=== PATIENT | male | born 1960 | race Caucasian/White ===

== ENCOUNTER 2017-05-09 12:20 | Day surgery (SDC) | payer OTHER ==
[2017-05-07 13:53] VITALS: BP 142/86
[~2017-05-09] VITALS: Ht 185.4 cm; Wt 80.0 kg
[~2017-05-09 12:20] MED LIST: BUPIVACAINE/PF 0.5% ONE; CALC625T23 PO; DEXT10CA4 PO
[2017-05-09] MEDS ORDERED: MIDAZOLAM 1 MG/ML, 2ML ONE (13:10)
[2017-05-09] MEDS ORDERED: FENTANYL PF 100 MCG/2ML ONE ×2 (13:11→15:19)
[2017-05-09] MEDS ORDERED: LACTATED RINGERS 1,000 ML IV SCH (13:11)
[2017-05-09] MEDS ORDERED: LIDOCAINE 1%, 2ML SQ PRN (13:30)
[2017-05-09] MEDS ORDERED: KETOROLAC 30 MG/1 ML ONE (13:52)
[2017-05-09] MEDS ORDERED: PROPOFOL 10 MG/ML, 20ML ONE (13:52)
[2017-05-09] MEDS ORDERED: ONDANSETRON 2MG/ML, 2ML ONE (13:52)
[2017-05-09] MEDS ORDERED: CEFAZOLIN 1,000 MG ONE (13:52)
[2017-05-09] MEDS ORDERED: DEXAMETHASONE 4 MG/ML, 1ML ONE (13:52)
[2017-05-09] MEDS ORDERED: ROCURONIUM 10 MG/ML ONE (13:52)
[2017-05-09] MEDS ORDERED: BUPIVACAINE/PF-EPI 0.5% 1:200K IM ONE (14:00)
[2017-05-09] MEDS ORDERED: GLYCOPYRROLATE 0.2MG/1ML, 5ML ONE (14:58)
[2017-05-09] MEDS ORDERED: FENTANYL PF 100 MCG/2ML IV PRN (15:00)
[2017-05-09] MEDS ORDERED: ONDANSETRON 2MG/ML, 2ML IVPush PRN (15:00)
[2017-05-09] MEDS ORDERED: HYDROmorphone 1 MG/ML, 1ML IV PRN (15:00)
[2017-05-09] MEDS ORDERED: PROMETHAZINE 25 MG/ML, 1ML IV PRN (15:00)
[2017-05-09] MEDS ORDERED: LABETALOL 5MG/ML, 20ML IV PRN (15:00)
[2017-05-09] MEDS ORDERED: ACETAMINOPHEN 325 MG TABLET PO PRN (15:00)
[2017-05-09] MEDS ORDERED: MEPERIDINE/PF 25MG/0.5ML IVPush PRN (15:00)
[2017-05-09] MEDS ORDERED: OXYcodone 5 MG/5 ML ORAL.SOL UDC PO PRN (15:00)
[2017-05-09] MEDS ORDERED: ACETAMINOPHEN 650 MG/20.3 ML UDC ONE (15:18)
[2017-05-09] MEDS ORDERED: OXYcodone 5 MG/5 ML ORAL.SOL UDC ONE (15:19)
[2017-05-09] MEDS ORDERED: GLYCOPYRROLATE 0.2MG/1ML, 5ML IVPush ONE (15:30)
== END 2017-05-09 18:40 | disposition home or self-care (01) ==
LOC: OUT 12:20
PROVIDERS: ATTEND Surgery
DX: K40.90 Unilateral inguinal hernia, without obstruction or gangrene, not specified as recurrent (principal)
CPT/HCPCS: 49505; C1781; J0690; J1100; J1885; J2250; J2405; J2704; J3490; J3010